=== PATIENT | female | born 1960 ===

== ENCOUNTER 2020-06-12 10:30 | Inpatient (IN) | payer OTHER ==
[~2020-06-12] VITALS: Ht 152.4 cm; Wt 81.6 kg
[2020-06-12] MEDS ORDERED: AVAPRO75 MG PO (15:21)
[2020-06-12] MEDS ORDERED: SYNTHROID50 MCG PO (15:21)
[2020-06-12] MEDS ORDERED: GABAPENTIN800 M1 PO (15:21)
[2020-06-12] MEDS ORDERED: MELATONIN10 MG PO (15:22)
[2020-06-12] MEDS ORDERED: LIPITOR20 MG PO (15:22)
[2020-06-12] MEDS ORDERED: RESTORIL30 M1 PO (15:22)
[2020-06-12] MEDS ORDERED: BENADRYL25 MG PO (15:23)
[2020-06-22] MEDS ORDERED: C-500500 MG (08:41)
== END 2020-06-22 16:12 | disposition home or self-care (01) | DRG 738 ==
LOC: ADM 10:30 → EDSTATUS 10:30 → O/R 06-17 05:51 → OB/GYN 06-17 05:51 → SURH 06-17 10:00 → OB/GYN 06-17 19:04
PROVIDERS: ADMIT Specialist; ATTEND Specialist
PROC: 0UT20ZZ Resection of Bilateral Ovaries, Open Approach (ICD-10-PCS; 2020-06-17)
PROC: 0UT70ZZ Resection of Bilateral Fallopian Tubes, Open Approach (ICD-10-PCS; 2020-06-17)
PROC: 07BC0ZX Excision of Pelvis Lymphatic, Open Approach, Diagnostic (ICD-10-PCS; 2020-06-17)
PROC: 0DBU0ZX Excision of Omentum, Open Approach, Diagnostic (ICD-10-PCS; 2020-06-17)
PROC: 0JB80ZX Excision of Abdomen Subcutaneous Tissue and Fascia, Open Approach, Diagnostic (ICD-10-PCS; 2020-06-17)
PROC: 0JBC0ZX Excision of Pelvic Region Subcutaneous Tissue and Fascia, Open Approach, Diagnostic (ICD-10-PCS; 2020-06-17)
PROC: 0UT90ZZ Resection of Uterus, Open Approach (ICD-10-PCS; principal; 2020-06-17 10:00)
DX: C56.1 Malignant neoplasm of right ovary (principal); C56.2 Malignant neoplasm of left ovary; D25.1 Intramural leiomyoma of uterus; D25.0 Submucous leiomyoma of uterus